=== PATIENT | female | born 1950 ===

== ENCOUNTER → 2017-09-30 | Outpatient (CLI) | payer OTHER ==
[~2017-09-30] VITALS: Ht 152.4 cm; Wt 55.8 kg
== END | disposition home or self-care (01) ==
LOC: OFIC 805 07:25
DX: H90.41 Sensorineural hearing loss, unilateral, right ear, with unrestricted hearing on the contralateral side (principal); H93.11 Tinnitus, right ear

== ENCOUNTER 2017-10-21 07:26 | Outpatient (CLI) | payer OTHER ==
[~2017-10-21] VITALS: Ht 152.4 cm; Wt 55.8 kg
== END 2017-10-21 07:45 | disposition home or self-care (01) ==
LOC: OFIC 805 07:26
DX: H93.11 Tinnitus, right ear (principal); R42 Dizziness and giddiness